=== PATIENT | female | born 1960 | race Caucasian/White ===

== ENCOUNTER 2018-02-06 07:38 | Day surgery (SDC) | payer OTHER, SELFPAY ==
[2018-02-05 12:48] VITALS: BMI 20.5
--- NOTE | 2018-02-06 08:23 | RAD ---
CHEST 2 VIEWS: HISTORY: Preoperative exam. COMPARISON: None. FINDINGS: Atherosclerosis of the aorta. Normal cardiac silhouette. The pulmonary vessels and hilum are normal . No consolidation or mass. No pneumothorax or osseous abnormalities. IMPRESSION: 1. No acute cardiopulmonary process. 2. Atherosclerosis. POS: [facility]
[2018-02-06 08:28] LABS: #Eosinphils 0.1 thou/uL (0.0-0.7); #Monocytes 0.4 thou/uL (0.11-0.59); %Basophils 0.9 % (0.0-1.0); %Eosinophils 1.9 % (0.0-10.0); %Lymphocytes 36.2 % (21.0-51.0); %Monocytes 7.6 % (0.0-10.0); %Neutrophils 53.5 % (42.0-75.0); Hemoglobin 12.7 g/dL (12.0-16.0); Mean Corpuscular Hemoglobin 31.4 pg (27.0-31.0); Mean Platelet Volume 7.8 fL (7.4-10.4); Platelet Count 241 thou/uL (130-400); RBC Distribution Width 12.3 % (11.5-14.5); Red Blood Cell (RBC) Count 4.05 mill/uL (4.20-5.40); White Blood Cell (WBC) Count 5.6 thou/uL (4.8-10.8)
[2018-02-06 08:49] LABS: Anion Gap 11 mmol/L (10-20); BUN (Urea Nitrogen) 12 mg/dL (9.8-20.1); Calc. Creatinine Clearance 55 mL/min (70-130); Calcium 9.5 mg/dL (7.8-10.44); Carbon Dioxide 29 mmol/L (22-29); Chloride 101 mmol/L (98-107); Estimated GFR-MDRD 57; Glucose 87 mg/dL (70-105); Sodium 137 mmol/L (136-145)
[2018-02-06] MEDS ORDERED: Midazolam HCl 2 mg/2 ml Vial ONE ×3 (08:51→09:37)
[2018-02-06 09:27] LABS: Bilirubin Negative (Negative); Blood, Urine Negative (Negative); Clarity CLEAR (Clear); Glucose, Urine (Dipstick) Negative (Negative); Leukocyte Negative (Negative); Nitrite Negative (Negative); Protein, Urine (Dipstick) Negative (Neg-Trace); Specific Gravity, Urine 1.011 (1.002-1.036)
[2018-02-06] MEDS ORDERED: Fentanyl 100 MCG/2 ML VIAL ONE ×2 (09:37→12:36)
[2018-02-06] MEDS ORDERED: Bupivacaine PF 0.5% 30 ML VIAL ONE (09:39)
[2018-02-06] MEDS ORDERED: Betamet Acet/Betamet Na Ph 30 MG/5 ML VIAL ONE (09:39)
[2018-02-06] MEDS ORDERED: Bacitracin Zinc Ointment 30 gm TUBE ONE (09:39)
[2018-02-06] MEDS ORDERED: CEFAZOLIN/Water 2 GM/20 ML SYRINGE ONE (09:49)
[2018-02-06] MEDS ORDERED: Hydrocortisone Sod Succ/PF 100 mg/2 ml Vial ONE ×2 (09:49→14:24)
[2018-02-06] MEDS ORDERED: Ondansetron HCl/PF 4 MG/2 ML Vial ONE ×2 (12:31→14:24)
[2018-02-06] MEDS ORDERED: Ketorolac Tromethamine 30 MG/ML VIAL ONE (12:41)
--- NOTE | 2018-02-06 12:54 | RAD ---
LEFT THUMB INTRAOPERATIVE FLUOROSCOPY: HISTORY: Thumb fracture. FINDINGS: Intraoperative fluoroscopy was provided for internal fixation, as performed by Dr. Helms. Multipl e spot fluoroscopy images show wires placed at the first metacarpophalangeal joint. FLUOROSCOPY TIME: 1:43 POS: [facility]
--- NOTE | 2018-02-06 13:03 | OP ---
DATE OF PROCEDURE: 02/06/2018 SURGEON: Dr. Boy Helms COMPLICATIONS: None. ANESTHESIA: General LMA technique by [place] Anesthesia augmented by 20 mL 0.5% Marcaine block, 10 mL before the surgery and 10 mL after wound closure. PROCEDURE PERFORMED: 1. Open relocation/reduction of dislocated chronically metacarpophalangeal joint. 2. Open tenotomy extensor tendons, extensor pollicis brevis, extensor pollicis longus will proceed o ashleigh the joint. 3. Capsular repair. 4. Arthrodesis, left thumb metacarpophalangeal joint. 5. C-arm supervision. TOURNIQUET TIME: 92 minutes. ESTIMATED BLOOD LOSS: 20 mL. COMPLICATIONS: None. FINDINGS: 1. An 80% total metacarpophalangeal joint chondral loss approximately 90% on the dislocated distal p iece and approximately 70% on the distal end of the metacarpal and its chondral surface. 2. Marked laxity of the capsule with tightening of the volar plate with chronic palmar dislocation. 3. Stretch of the radial collateral ligament. 4. Subluxation of the tendons radially as listed. DESCRIPTION OF PROCEDURE: After successful general LMA technique, the limb was prepped and draped. We outlined the cyst using C-arm to confirm that we could not obtain a closed reduction which was tri ed 3 times. We then exsanguinated the limb after prep and drape, outlined the incision zigzag of the joint and then infiltrated that with 10 mL of 0.5% Marcaine with epinephrine and carried through the skin and subcutaneous tissue, sparing the radial nerve branches on both sides to the center of the d igit. We then could visualize just the pollicis brevis appeared to be avulsed somewhat off the base of the middle phalanx and there was marked capsular redundancy dorsally, but we entered the capsule j ust radial to the slightly subluxed extensor tendons over the joint. The joint was very redundant at this point. Here, once we could visualize the joint, we could see that there was very little extens or pollicis brevis attachment to the joint still left, and there was complete obliteration of all car tilage on the distal surface and approximately 70% loss of cartilage surface on the proximal surface of the joint proceeding the chondral surface of the metacarpal. For this reason, because of instabil ity, chronic dislocation, dorsal stretch and tendons subluxation as well as approximately 80% total j oint articular surface loss, arthrodesis would be indicated in this patient to relieve pain and angelica re stability and function. For this reason, we used a combination of rongeur and curet to achieve villar bchondral surface that was soft and bleeding, created a cup and cone type articulation and then passe d an 18 gauge needle as a wire damon from radial to ulna distally and from ulnar to radial proximall y. We then relocated the joint in approximately 10 degrees of apex radial angulation and approximate ly 15 degrees of sagittal plane apex dorsal angulation or flexion. Then, we held in this position an d compressed, passed two K-wires across from proximal to distal and then just before they were placed in the cortex we use a machine technique to tighten the cerclage wire. This gave excellent reductio n. The patient then had the C-arm confirmed there was excellent position with the wires, the wires w ere cut proximally with only 2 mm protruding from the bone and then buried by hand. We then released the tourniquet, obtained hemostasis, released some of the dorsal redundant capsule, closed it, repai red the retinaculum enough to bring the extensor tendon back on top of the dorsum of the bone and it was no longer subluxed. This was a formal tenotomy. This was held with 4-0 Prolene [id number] type pattern. We then obtained hemostasis in dermis and epidermis, closed the dermis and epidermis o nly with interrupted 4-0 nylon mattress pattern gave the remainder of 10 mL irrigation, placed a bulk y dressing and a splint thumb spica. The patient left the operating room without evidence of anesthe tic or operative complications.
[2018-02-06] MEDS ORDERED: HYDROcodone/Acetaminophen 5/325 mg Tablet ONE (13:55)
[2018-02-06] MEDS ORDERED: PROPOFOL 200 MG/20 ML VIAL ONE (14:24)
[2018-02-06] MEDS ORDERED: Dexamethasone 20 MG/5 ML VIAL ONE (14:24)
[2018-02-06] MEDS ORDERED: Lidocaine 1% PF 5 ML VIAL ONE (14:24)
--- NOTE | 2018-02-07 08:42 | EKG ---
Test Reason : PREOP Blood Pressure : / mmHG Vent. Rate : 081 BPM Atrial Rate : 081 BPM P-R Int : 126 ms QRS Dur : 080 ms QT Int : 426 ms P-R-T Axes : 056 -07 057 degrees QTc Int : 494 ms Normal sinus rhythm Nonspecific T wave abnormality Abnormal ECG No previous ECGs available Confirmed by TERESA FREEMAN ([id number]) on 02/07/2018 8:42:25 AM Referred By: HERVE Confirmed By:TERESA FREEMAN
== END 2018-02-06 14:30 | disposition home or self-care (01) ==
LOC: SDC 07:38
PROVIDERS: ATTEND Orthopaedic Surgery Hand Surgery
PROC: 0RGV04Z Fusion of Left Metacarpophalangeal Joint with Internal Fixation Device, Open Approach (ICD-10-PCS; principal; 2018-02-06)
DX: S63.115A Dislocation of metacarpophalangeal joint of left thumb, initial encounter (principal); M06.9 Rheumatoid arthritis, unspecified; M79.7 Fibromyalgia; F41.9 Anxiety disorder, unspecified; M65.9 Synovitis and tenosynovitis, unspecified; Z88.8 Allergy status to other drugs, medicaments and biological substances; Z79.899 Other long term (current) drug therapy; Z79.891 Long term (current) use of opiate analgesic
CPT/HCPCS: 36415; 71046; 76001; 80048; 81003; 85025; 85652; 93005; 93010; 96372; 96374; 96375; C1713; J0702; J1100; J1720; J1885; J2001; J2250; J2405; J2704; J3010; S0020

== ENCOUNTER 2018-05-28 07:40 | Outpatient (CLI) | payer OTHER ==
--- NOTE | 2018-05-28 08:58 | ULT ---
ULTRASOUND GALLBLADDER RIGHT UPPER QUADRANT: HISTORY: Elevated LFTs. Abdominal pain. COMPARISON: None. FINDINGS: Real-time, manning scale, and color evaluation of the right upper quadrant of the abdomen is performed. Visualized portion of the aorta, IVC, and pancreas are unremarkable. Mild increased hepatic echotext ure. No hepatic mass. Prior cholecystectomy. No intrahepatic or extrahepatic biliary dilatation. Common bile duct measures 3 mm and is normal. The right kidney measures 9 x 4 x 5 cm without mass, h ydronephrosis, or abnormal calcifications. IMPRESSION: Mild increased hepatic echotexture suggesting steatosis. Prior cholecystectomy. POS: [facility]
== END 2018-05-28 07:41 | disposition home or self-care (01) ==
LOC: SCSULT 07:40
PROVIDERS: ATTEND Internal Medicine Rheumatology
DX: R74.8 Abnormal levels of other serum enzymes (principal); M05.79 Rheumatoid arthritis with rheumatoid factor of multiple sites without organ or systems involvement; R93.2 Abnormal findings on diagnostic imaging of liver and biliary tract; Z90.49 Acquired absence of other specified parts of digestive tract
CPT/HCPCS: 76705; 82550

== ENCOUNTER 2018-06-16 07:13 | Day surgery (SDC) | payer OTHER ==
[2018-06-16 08:03] LABS: #Eosinphils 0.1 thou/uL (0.0-0.7); #Monocytes 0.5 thou/uL (0.11-0.59); #Neutrophils 2.6 thou/uL (1.40-6.50); %Basophils 0.5 % (0.0-1.0); %Eosinophils 2.2 % (0.0-10.0); %Lymphocytes 37.8 % (21.0-51.0); %Monocytes 9.1 % (0.0-10.0); %Neutrophils 50.4 % (42.0-75.0); Hemoglobin 12.9 g/dL (12.0-16.0); Mean Corpuscular HGB CONC 31.8 g/dL (32.0-36.0); Mean Corpuscular Hemoglobin 31.1 pg (27.0-31.0); Mean Corpuscular Volume 97.8 fL (78.0-98.0); Mean Platelet Volume 8.7 fL (7.4-10.4); Platelet Count 192 thou/uL (130-400); RBC Distribution Width 11.5 % (11.5-14.5); Red Blood Cell (RBC) Count 4.15 mill/uL (4.20-5.40); White Blood Cell (WBC) Count 5.2 thou/uL (4.8-10.8)
[2018-06-16] MEDS ORDERED: Midazolam HCl 2 mg/2 ml Vial ONE (08:23)
[2018-06-16] MEDS ORDERED: Fentanyl 100 MCG/2 ML VIAL ONE ×2 (08:23→08:41)
[2018-06-16 08:24] LABS: Anion Gap 12 mmol/L (10-20); BUN (Urea Nitrogen) 11 mg/dL (9.8-20.1); Calc. Creatinine Clearance 67 mL/min (70-130); Calcium 9.5 mg/dL (7.8-10.44); Carbon Dioxide 26 mmol/L (22-29); Chloride 105 mmol/L (98-107); Estimated GFR-MDRD 72; Glucose 93 mg/dL (70-105); Potassium 3.9 mmol/L (3.5-5.1); Sodium 139 mmol/L (136-145)
[2018-06-16] MEDS ORDERED: Bupivacaine PF 0.5% 30 ML VIAL ONE (08:37)
[2018-06-16] MEDS ORDERED: Bacitracin Zinc Ointment 30 gm TUBE ONE (08:37)
[2018-06-16] MEDS ORDERED: Sodium Chloride 0.9% 10 ML ONE (08:37)
[2018-06-16 08:49] LABS: RBC/HPF 0-3 HPF (0-3)
[2018-06-16 08:51] LABS: Bacteria/HPF Rare-Few HPF (None Seen); Squamous Epithelial 0-3 HPF (0-3); WBC/HPF 0-3 HPF (0-3); Yeast-All Forms None Seen HPF (None Seen)
[2018-06-16] MEDS ORDERED: Ketorolac Tromethamine 30 MG/ML VIAL ONE ×2 (11:30→14:51)
--- NOTE | 2018-06-16 12:13 | RAD ---
RIGHT HAND THREE VIEWS: HISTORY: Right index finger metacarpophalangeal joint arthroplasty. FINDINGS/IMPRESSION: Three limited intraoperative fluoroscopic views of the right hand are submitted for interpretation. The patient has ongoing arthroplasty of the index finger metatarsophalangeal joint. The lateral radi ograph shows absence of the distal aspect of the index finger metacarpal secondary to replacement wit h a prosthesis. POS: [facility]
--- NOTE | 2018-06-16 13:55 | OP ---
DATE OF PROCEDURE: 06/16/2018 PREOPERATIVE DIAGNOSES: Left index finger metacarpophalangeal joint, severe erosive arthritis secondary to rheumatoid arthritis with ulnar extensor subluxation and intrinsic tightness and joint motion loss. POSTOPERATIVE DIAGNOSES AND FINDINGS: Left index finger metacarpophalangeal joint, severe erosive arthritis secondary to rheumatoid arthritis with ulnar extensor subluxation and intrinsic tightness and joint motion loss, severe erosive total loss of all chondral surface, index finger metacarpophalangeal joint both sides and ulnar subluxation with weakening of the radial extensor hill. PROCEDURES PERFORMED: 1. Synovectomy, joint, total. 2. Volar capsulotomy and release metacarpophalangeal joint, left index finger. 3. Intrinsic release, ulna. 4. Centralization, to the radial aspect, extensor hill with repair. 5. Metacarpophalangeal joint arthroplasty. 6. C-arm. 7. Short-arm splint. IMPLANTS: #3 MCP Partha [place] right metacarpophalangeal joint silastic implant. ANESTHESIA: General LMA technique augmented by preop regional block anesthesia. ESTIMATED BLOOD LOSS: 50 mL. TOURNIQUET TIME: 75 minutes. DESCRIPTION OF PROCEDURE: After successful general anesthesia as listed above, limb was prepped and draped injection. Time-out was done appropriately. We then identified the index finger, made a curvilinear incision, over the direct dorsal MCP joint carried through skin and subcutaneous tissue to reach the retinaculum. Immediately, there was a bulging thick synovium. We then made a T-shaped opening of the joint, performed a tenosynovectomy that had been performed dorsally, radial, ulnar, and even palmarly. A large rancid [employer] colored synovium was excised and a sample sent to lab. We irrigated the area. We then identified the collateral ligaments, spared both of them just at the condylar insertion on the distal aspect of the metacarpal. We then made a standard cut, removing approximately 3 mm of the thickness of the distal surface, where there was no further chondral seen, but only the prominences and large osteophytes of the metacarpal head. We then made a box cut on both radial ulnar and palmarly sparing the flexors. Now, we visualized posterior capsule, performed a longitudinal release of the capsule, small capsulotomy with capsulectomy freed up the palmar aspect of both the sides of the joint and spared the flexor tendons, which were visualized. We now protected the ulnar and radial collateral along the proximal aspect of the proximal phalanx, preformed a 1 mm to 1.5 mm thick saw cut of the eroded chondral surface, we used a combination of rongeur and Pershing blade to free up the radial and ulnar aspects while sparing the collateral insertions. Now, we had adequate cut space. We placed the starter broach first proximally and then distally on both sides of the joint with x-ray showing they were confined well through the center canal. We broached with a 2P and 2D, then we broached with 3P and 3D and we had to do multiple rasping, but we were able to rasp both deep all the way to the last marking. We then irrigated this, placed a three trial which was showed excellent stability and 95 degrees of motion at the prosthesis. We then took a drill, and drilled a hole for both ulnar and radial collateral, knowing that the radial collateral would be slightly tighter. Then, we placed the final prosthesis, again x-rayed. It was stable. We tied the collaterals first ulnar aspect and slight radial deviation of 15 degrees and the finger remained approximately 10 degrees radial deviation in the frontal plane. We then closed the transverse limb of the capsule with a 2-0 Vicryl buried, and then we had already cut the ulnar side of retinaculum, so we made the radial sided retinacular cut, loosely repaired the ulna, released the ulnar intrinsic distal to the retinaculum, and then did a [id number] closure of the radial side to prevent further subluxation. Must be noted that all of these retinaculum repaired with #4 Prolene RB-1 needle. Tourniquet was deflated. Hemostasis was obtained. We closed the skin with excellent hemostasis using interrupted 4-0 nylon mattress pattern. The patient then had bulky dressing applied with a splint holding the MP joint at -30 degrees of extension. The patient then left the operating room without evidence of anesthetic operative complication. Job ID: [id number]
[2018-06-16] MEDS ORDERED: Bupivacaine HCl 0.5%/Epinephrine 1:200,000/PF 30 ml Vial ONE (14:45)
[2018-06-16] MEDS ORDERED: Hydrocortisone Sod Succ/PF 100 mg/2 ml Vial ONE (14:51)
[2018-06-16] MEDS ORDERED: Lidocaine 1% PF 5 ML VIAL ONE (14:51)
[2018-06-16] MEDS ORDERED: Ondansetron PF 4 MG/2 ML Vial ONE (14:51)
[2018-06-16] MEDS ORDERED: PROPOFOL 200 MG/20 ML VIAL ONE (14:51)
== END 2018-06-16 12:30 | disposition home or self-care (01) ==
LOC: SDC 07:13
PROVIDERS: ATTEND Orthopaedic Surgery Hand Surgery
PROC: 0RRV0JZ Replacement of Left Metacarpophalangeal Joint with Synthetic Substitute, Open Approach (ICD-10-PCS; principal; 2018-06-16)
PROC: 0RNV0ZZ Release Left Metacarpophalangeal Joint, Open Approach (ICD-10-PCS; principal; 2018-06-16)
PROC: 0RBX0ZZ Excision of Left Finger Phalangeal Joint, Open Approach (ICD-10-PCS; principal; 2018-06-16)
PROC: 0RBV0ZZ Excision of Left Metacarpophalangeal Joint, Open Approach (ICD-10-PCS; principal; 2018-06-16)
DX: M19.042 Primary osteoarthritis, left hand (principal); M06.9 Rheumatoid arthritis, unspecified; S63.211A Subluxation of metacarpophalangeal joint of left index finger, initial encounter; F41.9 Anxiety disorder, unspecified; M79.7 Fibromyalgia; Z98.1 Arthrodesis status; Z91.018 Allergy to other foods; Z90.49 Acquired absence of other specified parts of digestive tract; Z90.710 Acquired absence of both cervix and uterus; Z87.891 Personal history of nicotine dependence; Z79.891 Long term (current) use of opiate analgesic; Z79.899 Other long term (current) drug therapy; Z98.890 Other specified postprocedural states
CPT/HCPCS: 36415; 76000; 80048; 81015; 85025; 85652; 88304; 93005; 93010; C1776; J0670; J1720; J1885; J2001; J2250; J2405; J2704; J3010; J3490; S0020

== ENCOUNTER 2018-10-19 09:00 | Outpatient (CLI) | payer SELFPAY ==
[2018-10-19 11:35] LABS: #Basophils 0.1 thou/uL (0.0-0.2); #Eosinphils 0.2 thou/uL (0.0-0.7); #Lymphocytes 2.2 thou/uL (1.20-3.40); #Monocytes 0.4 thou/uL (0.11-0.59); #Neutrophils 1.9 thou/uL (1.40-6.50); %Basophils 1.3 % (0.0-1.0); %Eosinophils 3.6 % (0.0-10.0); %Monocytes 8.7 % (0.0-10.0); %Neutrophils 39.4 % (42.0-75.0); Hemoglobin 13.2 g/dL (12.0-16.0); Mean Corpuscular Hemoglobin 30.8 pg (27.0-31.0); Mean Corpuscular Volume 93.4 fL (78.0-98.0); Mean Platelet Volume 8.6 fL (7.4-10.4); Platelet Count 236 thou/uL (130-400); RBC Distribution Width 11.4 % (11.5-14.5); Red Blood Cell (RBC) Count 4.27 mill/uL (4.20-5.40); White Blood Cell (WBC) Count 4.7 thou/uL (4.8-10.8)
== END 2018-10-19 09:01 | disposition home or self-care (01) ==
LOC: LABBT 09:00
PROVIDERS: ATTEND Orthopaedic Surgery Hand Surgery
DX: Z01.812 Encounter for preprocedural laboratory examination (principal); T85.848A Pain due to other internal prosthetic devices, implants and grafts, initial encounter
CPT/HCPCS: 85025

== ENCOUNTER 2018-10-20 07:41 | Day surgery (SDC) | payer SELFPAY ==
[2018-10-19 10:35] VITALS: BMI 19.4
[2018-10-20] MEDS ORDERED: Bupivacaine PF 0.5% 30 ML VIAL ONE (11:11)
[2018-10-20] MEDS ORDERED: Sodium Chloride 0.9% 10 ML ONE (11:11)
[2018-10-20] MEDS ORDERED: Bacitracin Zinc Ointment 30 gm TUBE ONE (11:11)
[2018-10-20] MEDS ORDERED: Midazolam HCl 2 mg/2 ml Vial ONE ×2 (11:31→11:34)
[2018-10-20] MEDS ORDERED: Fentanyl 100 MCG/2 ML VIAL ONE (11:34)
[2018-10-20] MEDS ORDERED: Ketorolac Tromethamine 30 MG/ML VIAL ONE (12:49)
--- NOTE | 2018-10-20 15:24 | OP ---
DATE OF PROCEDURE: 10/20/2018 PREOPERATIVE DIAGNOSIS: Painful wire, left thumb, the most radial and dorsal, with no pain or tenderness over her ulnar wire or the deep cerclage wire. COMPLICATIONS: None. ANESTHESIA: Procedure performed under general anesthesia with LMA technique for a great amount and 10 mL of 0.5% Marcaine block. PROCEDURES PERFORMED: 1. A C-arm supervision with fluoroscopy. 2. Removal of deep painful wire. COMPLICATIONS: None. ESTIMATED BLOOD LOSS: Less than 2 mL. TOURNIQUET TIME: 11 minutes. INDICATIONS: The patient again with rheumatoid arthritis, had multiple procedures done over her left thumb MCP joint fusion mass. She had pain over 1 wire, not the ulnar wire, but the radial, not cerclage wire. We agreed that we will remove this, and if there was evidence of instability on fluoro, we would pass the screw over this and not remove the other hardware. DESCRIPTION OF PROCEDURE: After successful general LMA technique, her limb was prepped and draped. We then performed time-out appropriately. She was injected with 10 mL of 0.5% Marcaine block along the area of the procedure. We then initially tried to remove the wire with only a 2-mm incision, but it required a 1 cm extension of the previous incision, removed the Prolene sutures subcutaneous and then dissected away over 2-mm deep wound to the level of the K-wire. The K-wire was highly mobile and had used a combination of a [place] along with a rongeur to remove the wire. Thus, it was mobile. After this, we performed fluoroscopy on the frontal-sagittal plane. There was no gross motion at the arthrodesis site. Thus, it was solid. We deflated the tourniquet. We repaired the 2-mm deep soft tissue opening with an interrupted [id number] 3-0 undyed Vicryl. We closed the skin with 4-0 nylon interrupted simple pattern. After obtained hemostasis, bulky dressing was applied. She left the operating room without evidence of anesthetic or operative complication. Job ID: [id number]
--- NOTE | 2018-10-20 18:50 | RAD ---
EXAM: 3 views of the left thumb HISTORY: Hardware removal from the left thumb COMPARISON: None FINDINGS/IMPRESSION: A single limited fluoroscopic view of the left thumb was submitted for interpret ation. A cerclage wire and K wire are seen spanning the metacarpal phalangeal joint of the thumb.
== END 2018-10-20 14:00 ==
LOC: SDC 07:41
PROVIDERS: ATTEND Orthopaedic Surgery Hand Surgery
PROC: 0LPX0JZ Removal of Synthetic Substitute from Upper Tendon, Open Approach (ICD-10-PCS; principal; 2018-10-20)
DX: T84.84XA Pain due to internal orthopedic prosthetic devices, implants and grafts, initial encounter (principal)
CPT/HCPCS: 76000; J0690; J1885; J2250; J3010; J3490; S0020

== ENCOUNTER 2019-05-14 10:56 | Emergency (ER) | payer OTHER ==
--- NOTE | 2019-05-14 12:02 | RAD ---
EXAM: Single view of the chest HISTORY: Cough and flulike symptoms COMPARISON: None FINDINGS: Single view of the chest shows a normal sized cardiomediastinal silhouette. There is no selam dence of consolidation, mass, or pleural effusion. The bones are unremarkable. IMPRESSION: No evidence of acute cardiopulmonary disease
== END 2019-05-14 13:27 | disposition home or self-care (01) ==
LOC: ERS 10:56
DX: J10.1 Influenza due to other identified influenza virus with other respiratory manifestations (principal); M79.7 Fibromyalgia; M06.9 Rheumatoid arthritis, unspecified; Z79.899 Other long term (current) drug therapy
CPT/HCPCS: 71045; 87804

== ENCOUNTER 2023-08-28 10:06 | Outpatient (CLI) | payer SELFPAY ==
[2023-08-28 12:39] LABS: #Basophils 0.05 10x3/uL (0.0-0.2); #Eosinphils 0.11 10x3/uL (0.0-0.5); #Monocytes 0.65 10x3/uL (0.0-1.1); #Neutrophils 6.22 10x3/uL (1.5-8.4); %Basophils 0.6 % (0.0-2.0); %Eosinophils 1.3 % (0.0-6.0); %Monocytes 7.8 % (0.0-10.0); %Neutrophils 75.1 % (40.0-75.0); Hematocrit 40.9 % (34.9-44.5); Hemoglobin 13.3 g/dL (12.0-15.5); Mean Corpuscular HGB CONC 32.5 g/dL (32.0-36.0); Mean Corpuscular Hemoglobin 28.9 pg (27.0-33.0); Mean Corpuscular Volume 88.7 fl (81.6-98.3); Mean Platelet Volume 11.8 fl (7.4-10.4); Platelet Count 230 10x3/uL (150-450); RBC Distribution Width 14.5 % (11.5-14.5); Red Blood Cell (RBC) Count 4.61 10x6/uL (3.90-5.03); White Blood Cell (WBC) Count 8.3 10x3/uL (3.5-10.5)
== END 2023-08-28 10:07 | disposition home or self-care (01) ==
LOC: LABBT 10:06
PROVIDERS: ATTEND Orthopaedic Surgery Hand Surgery
DX: Z01.818 Encounter for other preprocedural examination (principal); M65.311 Trigger thumb, right thumb; M06.09 Rheumatoid arthritis without rheumatoid factor, multiple sites
CPT/HCPCS: 85025; 93005; 93010